=== PATIENT | male | born 1985 | race Caucasian/White ===

== ENCOUNTER 2020-10-27 18:10 | Emergency (ER) | payer OTHER, SELFPAY ==
[2020-10-27 18:22] VITALS: BP 140/103; PULSE 114; RESP 18; TEMP 36.1; O2SAT 99
[2020-10-27 18:26] VITALS: PULSE 84; TEMP 37.1
--- NOTE | 2020-10-27 18:31 | ED.SKABFB ---
HPI - Skin/Abscess/Foreign Bdy General Chief complaint: Skin/Abscess/Foreign Body Stated complaint: Skin infection on lip Time Seen by Provider: 10/27/20 18:32 Source: patient and RN notes reviewed Mode of arrival: ambulatory Limitations: no limitations History of Present Illness HPI narrative: 35-year-old male presents to the [facility] with an infection to the right sided upper lip. States has been there a couple of days and started as an ingrown hair. Has gradually gotten worse. Has tried to treat it at home with Bactroban and trying to open it himself. Has an appointment with his primary care provider on Tuesday. Called his kidney transplant team at [facility] and was told to come get seen sooner than later. Has been using leftover Bactroban every time he cleaned it. Related Data Home Medications Medication Instructions Recorded Confirmed alprazolam 0.5 mg disintegrating 0.5 mg PO BID 04/09/19 tablet aspirin 81 mg tablet,delayed 81 mg PO DAILY 04/09/19 release buprenorphine 15 mcg/hour weekly 1 patch TRANSDERM Q7D 04/09/19 transdermal patch diphenoxylate-atropine 2.5 1 tablet PO QID PRN 04/09/19 mg-0.025 mg tablet duloxetine 60 mg capsule,delayed 60 mg PO DAILY 04/09/19 release gabapentin 300 mg capsule 300 mg PO BID 04/09/19 immun glob G 2 SUB-Q 04/09/19 gram/10mL(20%)-gly-IgA over 50 mcg/mL subcutaneous soln lamotrigine 150 mg tablet 150 mg PO BID 04/09/19 metoprolol tartrate 50 mg tablet 50 mg PO Q12H 04/09/19 pantoprazole 20 mg tablet,delayed 20 mg PO QAM 04/09/19 release tacrolimus 4 mg tablet,extended 4 mg PO QAM 04/09/19 release 24 hr cholecalciferol (vitamin D3) 10/27/20 tacrolimus [Envarsus XR] PO 10/27/20 tacrolimus [Envarsus XR] PO 10/27/20 Allergies Allergy/AdvReac Type Severity Reaction Status Date / Time No Known Allergies Allergy Verified 10/27/20 18:41 Review of Systems Review of Systems: All systems reviewed & are unremarkable except as noted in HPI and below Constitutional: Constitutional: Reports no additional constitutional complaints, Denies chills and Denies fever(s) Eyes: Eyes: Reports no additional eye complaints ENT: Reports as per HPI Comments: Right upper swollen lip, red, warm Cardiovascular: Cardiovascular: Reports no additional cardiovascular complaints Respiratory: Respiratory: Reports no additional respiratory complaints Musculoskeletal: Musculoskeletal: Reports no additional musculoskeletal complaints Integumentary/Breasts: Skin/Breast: Reports as per HPI and Reports erythema (Right upper lip) Neurologic: Reports system reviewed and no additional complaints, except as documented Psychiatric: Psychiatric: Reports no additional psychiatric complaints Allergic/Immunologic: Allergic/Immunologic: Reports no additional allergic/immunologic complaints [facility] Past Medical History Medical History (Updated 10/28/20 @ 00:01 by Randy Sims) Anxiety Hypertension Surgical History Surgical History (Updated 10/27/20 @ 18:40 by Kaylynn Felton) Kidney transplant recipient Family History Family History Father Hypertension Family history of coronary artery disease Social History Social History Smoking status: Former smoker Smoking end date: 03/21/11 Alcohol intake: never Comments At the time of my signature, I reviewed and agree with the nursing past medical, surgical, social, and family history. There is no relevant family history pertinent to the patient complaint. Exam Const: General: no acute distress and alert Nutritional Appearance: well nourished Orientation/consciousness: patient oriented x3 Limitations: no limitations HENMT: Ears: hearing grossly normal bilaterally, external ears normal, TM's normal bilaterally and EAC's normal General nose exam: Normal external nose present, Normal nares
[2020-10-27] MEDS: LIDOCAINE HCL 1% LOCAL INJ 20 ML VIAL 2.1 ML IM (19:33)
[2020-10-27] MEDS: cefTRIAXone 1 GM VIAL IM (19:33)
== END 2020-10-27 20:00 | disposition home or self-care (01) ==
PROVIDERS: Emergency Provider Nurse Practitioner; PCP Family Medicine
DX: L02.01 Cutaneous abscess of face (principal); Z87.891 Personal history of nicotine dependence; I10 Essential (primary) hypertension; F41.9 Anxiety disorder, unspecified; Z79.82 Long term (current) use of aspirin
CPT/HCPCS: 87070; 87075; 87147; 87186; 87205; 96372; 99213; G0463; J0696

== ENCOUNTER → 2022-08-27 09:39 | Outpatient (CLI) | payer OTHER, SELFPAY ==
--- NOTE | ~2022-08-27 | MR_ITS ---
MRI of the brain Clinical History: Migraine headache Technique: Axial and sagittal T1-weighted images were acquired. These were followed by axial T2-weigh marli, diffusion weighted, gradient, and FLAIR images. Findings: No abnormal signal seen in the brain parenchyma. No acute infarct, intracranial hemorrhage, or mass lesion. Ventricles and subarachnoid spaces are unremarkable. Orbits are unremarkable. Paranasal sinuses and m astoid air cells are clear. Major intracranial flow voids are intact. Sagittal midline structures are intact. IMPRESSION: Unremarkable exam. Reviewed, dictated and finalized at [facility]. IMPRESSION: Unremarkable exam.
== END ==
PROVIDERS: PCP Family Medicine; Visit Provider Nurse Practitioner Family
DX: G43.919 Migraine, unspecified, intractable, without status migrainosus (principal); R42 Dizziness and giddiness
CPT/HCPCS: 70551

== ENCOUNTER → 2022-08-27 09:42 | Outpatient (CLI) | payer OTHER, SELFPAY ==
--- NOTE | ~2022-08-27 | XR_ITS ---
XR scoliosis survey DATE: 08/27/2022 10:26 INDICATION: Scoliosis TECHNIQUE: Standing AP and lateral views COMPARISON: None FINDINGS: There is 51 degrees levoscoliosis from T2 to T6. There is 43 degrees dextroscoliosis measured from T6 to T10. There is 21 degrees levoscoliosis measured from T10 to L2 to. There is 14 degrees dextroscoliosis measured from L2 to L5. No fracture or dislocation or bone destruction is evident. IMPRESSION: 51 degrees levoscoliosis from T2 to T6. 43 degrees dextroscoliosis measured from T6 to T10. 21 degrees levoscoliosis measured from T10 to L2 to. 14 degrees dextroscoliosis measured from L2 to L5 Reviewed, dictated and finalized at [facility]. Reviewed, dictated and finalized at location []
== END ==
PROVIDERS: PCP Family Medicine; Visit Provider Nurse Practitioner Family
DX: Q79.60 Ehlers-Danlos syndrome, unspecified (principal); M41.84 Other forms of scoliosis, thoracic region
CPT/HCPCS: 72082

== ENCOUNTER → 2022-12-15 12:52 | Outpatient (CLI) | payer OTHER, SELFPAY ==
--- NOTE | ~2022-12-15 | MR_ITS ---
MRI of the lumbar spine Clinical History: Radiculopathy Technique: Axial T2-weighted images, and sagittal T1-weighted, T2-weighted, and T2 fat-sat images wer e acquired. Findings: There is no acute fracture or subluxation of the lumbar spine. There is mild chronic loss o f height/irregularity of the T12 and L1 vertebral bodies. There are reactive marrow changes about the L4-L5 disc space due to degenerative disc disease and developing Schmorl's noted. At L1-L2, there is no disc bulge or herniation. There is minimal facet arthropathy. No central canal stenosis or neural foraminal narrowing. At L2-L3, there is mild to moderate degenerative disc narrowing. There is minimal disc bulge and mini mal facet arthropathy. No central canal stenosis or neural foraminal narrowing. At L3-L4, there is mild disc bulge and minimal facet arthropathy. No central canal stenosis. There is mild to moderate right neural foraminal narrowing. Left neural foramen preserved. At L4-L5, there is disc bulge and moderate facet arthropathy. No central canal stenosis. There is sev ere bilateral neural foraminal compromise. At L5-S1, there is minimal disc bulge. No central canal stenosis or neural foraminal narrowing. Paravertebral soft tissues are unremarkable. Impression: Severe bilateral neural foraminal narrowing at L4-L5. [id number] right neural foraminal narrowing at L3-L4. Additional mild degenerative changes, as above. Reviewed, dictated and finalized at [facility]. Impression: Severe bilateral neural foraminal narrowing at L4-L5. [id number] right neural foraminal narrowing at L3-L4. Additional mild degenerative changes, as above.
== END ==
PROVIDERS: PCP Family Medicine; Visit Provider Nurse Practitioner Family
DX: M54.16 Radiculopathy, lumbar region (principal); M48.061 Spinal stenosis, lumbar region without neurogenic claudication
CPT/HCPCS: 72148